=== PATIENT | male | born 1955 | race African-American/Black ===

== ENCOUNTER 2019-08-28 10:40 | Inpatient (IN) | payer OTHER ==
[2019-08-28 12:24] VITALS: BMI 18.6
--- NOTE | 2019-08-28 13:41 | HP ---
CIWA Score Nausea/Vomitin-Mild Nausea/No Vomiting Muscle Tremors: 1-None Visible, but [place] Anxiety: 1-Mildly Anxious Agitation: 1-Slight > Activity Paroxysmal Sweats: 1-Minimal Palms Moist Orientation: 2-Disoriented Date<2 days Tacttile Disturbances: 0-None Auditory Disturbances: 0-None Visual Disturbances: 0-None Headache: 0-None Present CIWA-Ar Total Score: 7 - Admission Criteria OASAS Guidelines: Admission for Medically Managed Detox: Requires at least one of the followin. CIWA greater than 12 2. Seizures within the past 24 hours 3. Delirium tremens within the past 24 hours 4. Hallucinations within the past 24 hours 5. Acute intervention needed for co occurring medical disorder 6. Acute intervention needed for co occurring psychiatric disorder 7. Severe withdrawal that cannot be handled at a lower level of care (continued vomiting, continued diarrhea, abnormal vital signs) requiring intravenous medication and/or fluids 8. Admission ROS [facility] Chief Complaint: "detox" Allergies/Adverse Reactions: Allergies Allergy/AdvReac Type Severity Reaction Status Date / Time No Known Allergies Allergy Verified 08/28/19 12:19 History of Present Illness: 64 year old male presenting for alcohol, cocaine detox, was here yesterday but no beds were available. Alcohol: drinks 2 pints by himself and up to a 1/5 of hard alcohol if with friends. Last drink was 4-5 hours prior to this interview. Has been drinking this way for 2 years. Has been drinking since he was 9. Denies seizures. States has blackouts 2 weeks prior. Denies falls and head hits. Longest period of sobriety: 3 years. 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 Denies eating when he drinks. Has lost weight, 12 lbs, because of drinking. When he doesn't drink, he starts to have tremors. Cocaine: smokes crack. 40-60$ worth once to twice a day. Used to use more in the 90s. Marijuana: 5$ worth per day. Has been smoking for 40 years Has been in detox 6 months ago most recently at [facility]. Has been to rehab in the past. Wants to go to rehab after detox. States will talk to counselor after to go to an inpatient rehab facility. Medical History: hx of repeated ankle sprains. Psychiatric History: bipolar, hospitalized recently 2 years ago. Meds: neurontin, seroquel Surgical History: broken wrist repair Social: lives in residence for mental health. SSI. Smokin/2 ppd 30 years PCP: denies Allergies: denies - Ebola screening Have you traveled outside of the country in the last 21 days: No Have you had contact with anyone from an Ebola affected area: No Do you have a fever: No Patient History - Patient Medical History Hx Anemia: No Hx Asthma: No Hx Chronic Obstructive Pulmonary Disease (COPD): No Hx Cancer: No Hx Cardiac Disorders: No Hx Congestive Heart Failure: No Hx Hypertension: No Hx Hypercholesterolemia: No Hx Pacemaker: No HX Cerebrovascular Accident: No Hx Seizures: No Hx Dementia: No Hx Diabetes: No Hx Gastrointestinal Disorders: No Hx Liver Disease: No Hx Genitourinary Disorders: No Hx Sexually Transmitted Disorders: No Hx Renal Disease (ESRD): No Hx Thyroid Disease: No Hx Human Immunodeficiency Virus (HIV): No Hx Hepatitis C: No Hx Depression: No Hx Suicide Attempt: No Hx Bipolar Disorder: Yes Hx Schizophrenia: No - Patient Surgical History Hx Neurologic Surgery: No Hx Cataract Extraction: No Hx Cardiac Surgery: No Hx Lung Surgery: No Hx Breast Surgery: No Hx Breast Biopsy: No Hx Abdominal Surgery: No Hx Appendectomy: No Hx Cholecystectomy: No Hx Genitourinary Surgery: No Hx Orthopedic Surgery: Yes (R wrist fx repair) - Smoking Cessation Smoking history: Current every day smoker Have you smoked in the past 12 months: Yes Aproximately how many cigarettes per day: 10 Hx Chewing Tobacco Use: No Initiated information on smoking cessation: Yes 'Breaking Loose' booklet given: 08/28/19 - Substances abused Alcohol Substance route: Oral Frequency: Daily Amount used: 2 pints of vodka Age of first use: 10 Date of last use: 08/27/19 Cocaine Substance route: Smoking Frequency: 1-3 times last 30 days Amount used: $40-60 Age of first use: 31 Date of last use: 08/17/19 Marijuana/Hashish Substance route: Smoking Frequency: Daily Amount used: 1 nickel bag Age of first use: 24 Date of last use: 08/27/19 Admission Physical Exam BHS - Vital Signs Vital Signs: Vital Signs - 24 hr 08/28/19 08/28/19 12:19 13:07 Temperature 98.0 F 98.0 F Pulse Rate 103 H 103 H Respiratory 20 20 Rate Blood Pressure 157/92 157/92 - Physical General Appearance: Yes: No Apparent Distress, Nourished, Appropriately Dressed HEENTM: Yes: Hearing grossly Normal, Normal ENT Inspection, Pharynx Normal Respiratory: Yes: Lungs Clear, Normal Breath Sounds Cardiology: Yes: Regular Rhythm, Regular Rate Abdominal: Yes: Normal Bowel Sounds, Non Tender, Flat, Soft Extremities: Yes: Normal Capillary Refill 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
[2019-08-28] MEDS ORDERED: hydrOXYzine PAMOATE 25 MG CAPSULE (FP) PO PRN (13:50)
[2019-08-28] MEDS ORDERED: chlordiazePOXIDE HCL 25 MG CAPSULE PO PRN (13:50)
[2019-08-28] MEDS ORDERED: ACETAMINOPHEN 325 MG TABLET (FP) PO PRN ×2 (13:50)
[2019-08-28] MEDS ORDERED: MAGNESIUM HYDROX 2400MG/30ML ORAL SUSPENSION 30 ML CUP PO PRN (13:50)
[2019-08-28] MEDS ORDERED: MAG HYDROX/AL HYDROX/SIMETH 30 ML UNIT-DOSE CUP PO PRN (13:50)
[2019-08-28] MEDS ORDERED: MENTHOL/PHENOL 1 EACH UD MM PRN (13:50)
[2019-08-28] MEDS ORDERED: IBUPROFEN 400 MG TABLET (FP) PO PRN (13:50)
[2019-08-28] MEDS ORDERED: METHOCARBAMOL 500 MG TABLET PO PRN (13:50)
[2019-08-28] MEDS ORDERED: BISMUTH SUBSALICYLATE 262 MG/15 ML BTL PO PRN (13:50)
[2019-08-28] MEDS ORDERED: MAGNESIUM CITRATE 300 ML BOTTLE PO PRN (13:50)
--- NOTE | 2019-08-28 15:50 | PN ---
Teaching Attending Note Name of Resident: Binu Mcdowell ATTENDING PHYSICIAN STATEMENT I saw and evaluated the patient. I reviewed the resident's note and discussed the case with the resident. I agree with the resident's findings and plan as documented. SUBJECTIVE: 64 year old male presenting for alcohol and cocaine detox, referred by residence where he lives . Alcohol: 2 pints liquor /day x 2 years , reports tremors if not drinking , denies seizures or blackouts , starts drinking in the mornings, reports debt to [employer] 2/2 monies borrowed for etoh use , latest use today .first age of use 9 . detox 6 mo ago [facility] Cocaine: crack 40-60$ x/day . Marijuana: 5$ / day x40 years tobaco : 1/2 ppd PMHX : janina ankle sprains , using cane for stability and balance , remote wrist frx. Psychiatric History: bipolar, hospitalized most recently 2 years ago. OBJECTIVE: wnwd Vital Signs - 24 hr 08/28/19 08/28/19 12:19 13:07 Temperature 98.0 F 98.0 F Pulse Rate 103 H 103 H Respiratory 20 20 Rate Blood Pressure 157/92 157/92 ASSESSMENT AND PLAN: Alcohol dependence - Librium taper
[2019-08-28 17:02] LABS: HEMATOCRIT 44.1 % (35.4-49); HEMOGLOBIN 14.4 GM/dL (11.7-16.9); MCH 30.3 pg (25.7-33.7); MCHC 32.6 g/dl (32.0-35.9); MEAN PLT VOLUME 6.7 fl (7.5-11.1); PLATELET COUNT 327 K/MM3 (134-434); RBC 4.74 M/mm3 (4.00-5.60); WHITE BLOOD COUNT 4.3 K/mm3 (4.0-10.0)
[2019-08-28] MEDS: chlordiazePOXIDE HCL 25 MG CAPSULE PO SCH ×2 (17:10→22:18)
[2019-08-28 17:13] LABS: ALBUMIN 3.7 g/dl (3.4-5.0); BILIRUBIN,TOTAL 0.4 mg/dL (0.2-1); BLOOD UREA NITROGEN 9.1 mg/dL (7-18); CALCIUM 9.2 mg/dL (8.5-10.1); CREATININE 1.2 mg/dL (0.55-1.3); POTASSIUM 3.9 mmol/L (3.5-5.1); TOT PROT 6.9 g/dl (6.4-8.2)
[2019-08-28] MEDS: THIAMINE HCL 100 MG TABLET (FP) PO SCH (22:18)
[2019-08-28] MEDS: MELATONIN 5 MG TABLETS PO PRN (22:18)
[2019-08-29] MEDS: chlordiazePOXIDE HCL 25 MG CAPSULE PO SCH ×4 (06:41→22:07)
[2019-08-29] MEDS: PRENATAL VITAMINS W/ FOLIC ACID TABLET (FP) PO SCH (10:47)
--- NOTE | 2019-08-29 10:58 | PN ---
S CIWA - CIWA Score Nausea/Vomitin-No Nausea/No Vomiting Muscle Tremors: 2 Anxiety: 2 Agitation: 0-Normal Activity Paroxysmal Sweats: 2 Orientation: 0-Oriented Tacttile Disturbances: 0-None Auditory Disturbances: 0-None Visual Disturbances: 0-None Headache: 2-Mild CIWA-Ar Total Score: 8 BHS Progress Note (SOAP) Subjective: c/o sweats, headache, and muscle aches. Objective: 08/29/19 10:55 Vital Signs 08/29/19 08/29/19 08/29/19 03:30 07:04 09:42 Temperature 97.9 F 96.4 F L Pulse Rate 55 L 81 Respiratory 18 18 18 Rate Blood Pressure 113/70 100/65 Lab Results WBC 4.3 K/mm3 (4.0-10.0) 08/28/19 14:00 RBC 4.74 M/mm3 (4.00-5.60) 08/28/19 14:00 Hgb 14.4 GM/dL (11.7-16.9) 08/28/19 14:00 Hct 44.1 % (35.4-49) 08/28/19 14:00 MCV 93.0 fl (80-96) 08/28/19 14:00 MCHC 32.6 g/dl (32.0-35.9) 08/28/19 14:00 RDW 15.0 % (11.9-15.9) 08/28/19 14:00 Plt Count 327 K/MM3 (134-434) 08/28/19 14:00 Sodium 144 mmol/L (136-145) 08/28/19 14:00 Potassium 3.9 mmol/L (3.5-5.1) 08/28/19 14:00 Chloride 110 mmol/L (98-107) H 08/28/19 14:00 Carbon Dioxide 27 mmol/L (21-32) 08/28/19 14:00 Anion Gap 7 MMOL/L (8-16) L 08/28/19 14:00 BUN 9.1 mg/dL (7-18) 08/28/19 14:00 Creatinine 1.2 mg/dL (0.55-1.3) 08/28/19 14:00 Random Glucose 71 mg/dL (74-106) L 08/28/19 14:00 Calcium 9.2 mg/dL (8.5-10.1) 08/28/19 14:00 Labs noted. Assessment: 08/29/19 10:56 AOX3, in no acute respiratory distress. Full ROM, ambulating in the unit with a cane. Withdrawal symptoms. Plan: continue detox.
--- NOTE | 2019-08-29 16:41 | CONSULT ---
[facility] Psychiatric Consult - Data Date of interview: 08/29/19 Admission source: [facility] Identifying data: Readmission to [facility] for this 64 y/o AA male self- referred for detoxification. Subsrtances of abuse : alcohol, cocaine, cannabis, nicotine. Seen on . Patient is single, no dependents, domiciled (resides at [facility] in the [place]), unemployed and supported on SSI benefits. Substance Abuse History: Discussed in this session. See details in current [facility] report as follows : Smoking history: Current every day smoker. Have you smoked in the past 12 months: Yes. Aproximately how many cigarettes per day: 10. Hx Chewing Tobacco Use: No. Initiated information on smoking cessation: Yes. ' Breaking Loose' booklet given: 08/28/19. - Substances abused. Alcohol. Substance route: Oral. Frequency: Daily. Amount used: 2 pints of vodka. Age of first use: 10. Date of last use: 08/27/19. Cocaine. Substance route: Smoking. Frequency: 1-3 times last 30 days. Amount used: $40-60. Age of first use: 31. Date of last use: 08/17/19. Marijuana/Hashish. Substance route: Smoking. Frequency: Daily. Amount used: 1 nickel bag. Age of first use : 24. Date of last use: 08/27/19 Medical History: Remarkable for complaint of weight loss (alcoholism) and pain in left ankle. Ambulates with a cane. Psychiatric History: Unclear history of psychiatric hospitalizations (it appears that the two psychiatric hospitalizations - [facility] + [facility] - were, in fact, CPEP visits (extended observation and release after a few hours). Mr Grier states that he has been diagnosed with bipolar disorder and managed with seroquel 400 mg/hs + gabapentin 200 mg/tid. He sees a psychiatrist at [facility]. Patient denies history of suicide attempts. Physical/Sexual Abuse/Trauma History: Patient denies history of abuse. Additional Comment: Urine drug screen results: THC-Marijuana. Noted. Mental Status Exam - Mental Status Exam Alert and Oriented to: Time, Place, Person Cognitive Function: Good Patient Appearance: Well Groomed (thin habitus) Mood: Nervous, Withdrawn, Hopeful Affect: Appropriate, Normal Range Patient Behavior: Fatigued, Appropriate, Cooperative Speech Pattern: Clear Voice Loudness: Normal Thought Process: Intact, Goal Oriented Thought Disorder: Not Present Hallucinations: Denies Suicidal Ideation: Denies Homicidal Ideation: Denies Insight/Judgement: Poor Sleep: Poorly, Difficulty falling asleep Appetite: Poor, Weight loss Muscle strength/Tone: Normal Gait/Station: Other (walks with a cane) Psychiatric Findings - Problem List ([place] 1, 2,3) (1) Alcohol dependence Current Visit: Yes Status: Chronic (2) Cocaine abuse Current Visit: Yes Status: Chronic (3) Cannabis abuse Current Visit: Yes Status: Chronic (4) Nicotine dependence Current Visit: Yes Status: Chronic (5) Substance induced mood disorder Current Visit: Yes Status: Acute (6) History of bipolar disorder Current Visit: Yes Status: Chronic (7) Insomnia Current Visit: Yes Status: Chronic - Initial Treatment Plan Initial Treatment Plan: Psychoeducation. Sleep hygiene. Detoxification. AA meetings. Seroquel 200 mg po hs (reduced as precaution for oversedation/risk of falls). Side effects/benefits discussed with patient. Mr Grier has expressed his agreement with this plan of care. Attempt made to verify medications with pharmacist at [facility] ([phone]). Closed on Saturdays @ 3:30 pm. Observation.
[2019-08-29] MEDS: THIAMINE HCL 100 MG TABLET (FP) PO SCH (21:41)
[2019-08-29] MEDS: QUEtiapine FUMARATE 200 MG TABLET PO SCH (21:41)
[2019-08-29] MEDS: MELATONIN 5 MG TABLETS PO PRN (21:41)
[2019-08-29] MEDS: GABAPENTIN 100 MG CAPSULE (FP) PO SCH (21:41)
[2019-08-29] MEDS ORDERED: QUEtiapine FUMARATE 400 MG TABLET PO SCH (22:00)
[2019-08-30] MEDS: chlordiazePOXIDE HCL 25 MG CAPSULE PO SCH ×4 (06:02→23:57)
[2019-08-30] MEDS: PRENATAL VITAMINS W/ FOLIC ACID TABLET (FP) PO SCH (10:45)
[2019-08-30] MEDS: GABAPENTIN 100 MG CAPSULE (FP) PO SCH ×2 (10:45→22:22)
--- NOTE | 2019-08-30 17:04 | PN ---
S CIWA - CIWA Score Nausea/Vomitin-No Nausea/No Vomiting Muscle Tremors: 2 Anxiety: 3 Agitation: 2 Paroxysmal Sweats: 3 Orientation: 0-Oriented Tacttile Disturbances: 0-None Auditory Disturbances: 0-None Visual Disturbances: 0-None Headache: 0-None Present CIWA-Ar Total Score: 10 S Progress Note (SOAP) Subjective: Symptoms controlled with medication Objective: 08/30/19 17:03 Last Vital Signs Temp Pulse Resp BP Pulse Ox 98.1 F 101 H 16 113/78 08/30/19 14:21 08/30/19 14:21 08/30/19 14:21 08/30/19 14:21 Laboratory Tests 08/28/19 08/28/19 08/28/19 14:00 14:00 14:00 WBC 4.3 RBC 4.74 Hgb 14.4 Hct 44.1 MCV 93.0 MCH 30.3 MCHC 32.6 RDW 15.0 Plt Count 327 MPV 6.7 L Sodium 144 Potassium 3.9 Chloride 110 H Carbon Dioxide 27 Anion Gap 7 L BUN 9.1 Creatinine 1.2 Est GFR (CKD-EPI)AfAm 74.14 Est GFR (CKD-EPI)NonAf 63.97 Random Glucose 71 L Calcium 9.2 Total Bilirubin 0.4 AST 21 ALT 23 Alkaline Phosphatase 69 Total Protein 6.9 Albumin 3.7 RPR Titer Nonreactive Labs reviewed Assessment: 08/30/19 17:03 Withdrawal sxs Plan: Continue detox Encouraged PO water intake
[2019-08-30] MEDS: QUEtiapine FUMARATE 200 MG TABLET PO SCH (22:22)
[2019-08-30] MEDS: MELATONIN 5 MG TABLETS PO PRN (22:22)
[2019-08-30] MEDS: THIAMINE HCL 100 MG TABLET (FP) PO SCH (22:22)
[2019-08-31] MEDS ORDERED: chlordiazePOXIDE HCL 10 MG CAPSULE PO PRN
[2019-08-31] MEDS: chlordiazePOXIDE HCL 10 MG CAPSULE PO SCH ×4 (06:13→22:05)
--- NOTE | 2019-08-31 06:44 | PN ---
[facility] Progress Note Note: I was informed by the nurse Km Morfin that patient was found on the floor while she was rounding. Patient reports that he fell from the bed this morning but could not recollect time or event. No visual injury injury noted or reported at this time. Patient denies loss of consciousness, pain or discomfort at this time. No swelling, redness, abrasion, swelling or wound noted or reported. Fall was not witnessed. Fall protocol #1 initiated. Patient was endorsed to Dr. Mildred Fitzpatrick. He refused to go to emergency room as per protocol. He signed the refusal of treatment form. Vital Signs Temperature 96 F L 08/31/19 04:00 Pulse Rate 76 08/31/19 04:00 Respiratory Rate 18 08/31/19 04:00 Blood Pressure 119/79 08/31/19 04:00 O2 Sat by Pulse Oximetry (%) PHYSICAL ASSESMENT: General: Patient is alert, calm and well developed. Head: No signs of trauma, normocephalic, atraumatic Eyes: PERRLA, EOMI, sclera is white, conjunctiva clear ENT: Normal hearing. Auricles normal inspection, nares patent, Oropharynx clear without exudates. Moist mucosa LUNGS: No distress, speaks in full sentences, clear to auscultation bilaterally Neck: Supple, no lymphadenopathy, JVD, or masses Lungs: No distress, clear to auscultation bilaterally Heart: Regular rate and rhythm, normal S1 and S2, no murmurs, rubs or gallops, peripheral pulses normal and equal bilaterally. Abdomen: Soft, non-tender, bowel sounds normal. No guarding, no rebound. No palpable masses Extremities: Normal inspection, Normal range of motion, no edema. No clubbing or cyanosis. Neurological: Alert and oriented to person, place and time. ambulates with a cane. No focal deficits Skins: Warm, Dry, normal turgor, no rashes Psych. Fluent speech and clear words. Thought processes are coherent, insight is good Action: Continue post fall monitoring Tylenol 325mg tablet 2 tablet oral Q6H as needed Maintain safety precaution
--- NOTE | 2019-08-31 10:24 | PN ---
S CIWA - CIWA Score Nausea/Vomitin-Mild Nausea/No Vomiting Muscle Tremors: 1-None Visible, but [place] Anxiety: 2 Agitation: 3 Paroxysmal Sweats: No Perspiration Orientation: 0-Oriented Tacttile Disturbances: 0-None Auditory Disturbances: 0-None Visual Disturbances: 0-None Headache: 0-None Present CIWA-Ar Total Score: 7 BHS Progress Note (SOAP) Subjective: alert,irritable,interrupted sleep,anxious,agitation,has unwitness fall ,please see note of SOFT SUGAR CUTTER Berenice Spaulding Objective: 08/31/19 10:25 Vital Signs Temperature 96.8 F L 08/31/19 09:45 Pulse Rate 85 08/31/19 09:45 Respiratory Rate 76 H 08/31/19 09:45 Blood Pressure 123/91 08/31/19 09:45 O2 Sat by Pulse Oximetry (%) Assessment: 08/31/19 10:25 withdrawal symptom Plan: continue detox librium regimen,continue fall protocol 1 observation,observe ambulation on the unit in steady gait, without difficulty
[2019-08-31] MEDS: PRENATAL VITAMINS W/ FOLIC ACID TABLET (FP) PO SCH (10:55)
[2019-08-31] MEDS: GABAPENTIN 100 MG CAPSULE (FP) PO SCH ×2 (10:55→22:05)
[2019-08-31] MEDS: QUEtiapine FUMARATE 200 MG TABLET PO SCH (22:05)
[2019-08-31] MEDS: MELATONIN 5 MG TABLETS PO PRN (22:05)
[2019-08-31] MEDS: THIAMINE HCL 100 MG TABLET (FP) PO SCH (22:05)
--- NOTE | 2019-09-01 04:50 | PN ---
[facility] Progress Note Note: INFORMED CLIENT LEFT UNIT. CLIENT WAS SEEN SEATED IN [facility] WITH NURSING PROTOTYPE CARPENTER, RN AND SECURITY. CLIENT VOICES THAT HE IS UPSET AND WANTS TO LEAVE. "THEY KEEP GIVING ME SOME SHIT THAT IS MAKING ME WEAK AND I KEEP FALLING DOWN". CLIENT EXPRESSES HE DOES NOT WANT TO LEAVE HE HAS HOPES TO CONTINUE TXMENT IN REHAB. DENIES AVH, DIZZINESS, SOB, HEADACHES, SHAKES ,SWEATS AT PRESENT TIME EMOTIONAL SUPPORT AND ENCOURAGEMENT PROVIDED BY TEAM. CLIENT WAS REASSURED THAT [facility] WILL BE DC AND WE WOULD MONITOR FOR ANY ACUTE WITHDRAWAL SX'S AND TREAT ACCORDINGLY. HE WAS ALSO INFORMED THAT HE COULD SPEAK WITH COUNSELOR AROUND 8 AM AND POSSIBLE TRANSFER TO REHAB HE HAS ALREADY COMPLETED 3 DAY TAPER , COMPLETED TAPER TOMORROW AND APPEARS STABLE AT THIS TIME. CLIENT AGREES TO PLAN AND RETURNED TO UNIT ESCORTED BY STAFF. Vital Signs - 8 hr 09/01/19 09/01/19 09/01/19 00:30 03:00 06:00 Temperature 97.9 F 101.8 F H Pulse Rate 101 H 124 H Respiratory 18 22 H 20 Rate Blood Pressure 159/85 135/75 09/01/19 07:00 Temperature 98.4 F Pulse Rate 91 H Respiratory 18 Rate Blood Pressure 128/96 CLIENT IS A/O X3 , CLEAR SPEECH AND THOUGHT PROCESS NCAT PERRLA, EOMI GAIT- CLIENT NOTED WITH WOBBLY/ UNSTEADY GAIT. SWAYING AT TIMES. LEFT HIS CANE UPSTAIRS. A- F11.20 R/F ELOPEMENT R/F FALLS P- 1:1 OBSERVATION FOR SAFETY DC [facility] TAPER F/U WITH COUNSELOR FOR POSSIBLE TRANSFER TO REHAB CLIENT IS CONCERNED ABOUT HIS SSI CHECK. TOLD CLIENT TO SPEAK WITH COUNSELOR TO SEE IF ARRANGEMENTS CAN BE MADE TO SECURE HIS MONIES CONT TO MONITOR CLOSELY FOR ACUTE WITHDRAWAL SX'S CLIENT NOTED WITH SPIKE IN TEMP X 1. REPEAT NL. CLIENT WAS ALSO NOTED WITH A CUP OF COFFEE IN HIS HAND AT THE TIME. DENIES ANY COMPLAINTS AT THIS TIME CONT TO MONITOR CLINICALLY.
[2019-09-01] MEDS ORDERED: chlordiazePOXIDE HCL 10 MG CAPSULE PO SCH (05:00)
[2019-09-01] MEDS: PRENATAL VITAMINS W/ FOLIC ACID TABLET (FP) PO SCH (09:17)
[2019-09-01] MEDS: GABAPENTIN 100 MG CAPSULE (FP) PO SCH (09:22)
[2019-09-01 09:36] VITALS: BP 127/75; PULSE 119; TEMP 97.9
--- NOTE | 2019-09-01 10:02 | PN ---
[facility] Progress Note Note: pt was placed on a 1:1 by THERAPEUTIC PROGRAM WORKER yesterday to avoid pt from eloping during the night. pt was re-assessed this am. Pt expressed his need to leave this morning. He states he finished his detox and want to go home. Pt responded to all questions asked AAOx3 however was very agitated and angry when he answered the questions. Assistant Community Manager asked psych to assist in questioning pt and pt reaction was the same "I just want to go home. I have things to do. " pt was asked if he was looking to hurt self or others and he aggressively states absolutely not! pt was d/c and pt declined rehab however, referral was provided.
--- NOTE | 2019-09-01 10:04 | DS ---
[facility] Detox Discharge Summary Admission Date: 08/28/19 Discharge Date: 09/01/19 - History Present History: Alcohol Dependence, Cannabis Dependence, Cocaine Dependence - Physical Exam Results Vital Signs: Vital Signs Temperature 97.9 F 09/01/19 09:35 Pulse Rate 119 H 09/01/19 09:35 Respiratory Rate 18 09/01/19 09:35 Blood Pressure 127/75 09/01/19 09:35 O2 Sat by Pulse Oximetry (%) Pertinent Admission Physical Exam Findings: pt arrived in withdrawals Laboratory Tests 08/28/19 08/28/19 08/28/19 14:00 14:00 14:00 WBC 4.3 RBC 4.74 Hgb 14.4 Hct 44.1 MCV 93.0 MCH 30.3 MCHC 32.6 RDW 15.0 Plt Count 327 MPV 6.7 L Sodium 144 Potassium 3.9 Chloride 110 H Carbon Dioxide 27 Anion Gap 7 L BUN 9.1 Creatinine 1.2 Est GFR (CKD-EPI)AfAm 74.14 Est GFR (CKD-EPI)NonAf 63.97 Random Glucose 71 L Calcium 9.2 Total Bilirubin 0.4 AST 21 ALT 23 Alkaline Phosphatase 69 Total Protein 6.9 Albumin 3.7 RPR Titer Nonreactive today pt is aaox3 ambulating insisting that he wants to go home - Treatment Hospital Course: Detox Protocol Followed, Detoxed Safely, Responded well, Discharged Condition Good, Rehab Referral Accepted Patient has Accepted a Rehab Referral to: declined rehab; referral provided - Medication Discharge Medications: Ambulatory Orders Gabapentin [Neurontin] 200 mg PO BID 08/27/19 Quetiapine Fumarate [Seroquel -] 400 mg PO HS 08/27/19 - Diagnosis (1) Substance induced mood disorder Current Visit: Yes Status: Acute (2) Alcohol dependence Current Visit: Yes Status: Chronic (3) Cannabis abuse Current Visit: Yes Status: Chronic (4) Cocaine abuse Current Visit: Yes Status: Chronic (5) History of bipolar disorder Current Visit: Yes Status: Chronic (6) Insomnia Current Visit: Yes Status: Chronic (7) Nicotine dependence Current Visit: Yes Status: Chronic Qualifiers: Nicotine product type: cigarettes Substance use status: uncomplicated Qualified Code(s): F17.210 - Nicotine dependence, cigarettes, uncomplicated (8) Substance induced mood disorder Current Visit: Yes Status: Chronic - AMA Did Patient Leave Against Medical Advice: No
[2019-09-02] MEDS ORDERED: chlordiazePOXIDE HCL 10 MG CAPSULE PO ONE (05:00)
== END 2019-09-01 09:44 | disposition home or self-care (01) | DRG 774 ==
LOC: YASAS 10:40 → Y6N 14:57
PROVIDERS: ADMIT Surgery; ATTEND Surgery
PROC: HZ2ZZZZ Detoxification Services for Substance Abuse Treatment (ICD-10-PCS; principal; 2019-08-28)
DX: F10.230 Alcohol dependence with withdrawal, uncomplicated (principal); F14.20 Cocaine dependence, uncomplicated; F12.20 Cannabis dependence, uncomplicated; F17.210 Nicotine dependence, cigarettes, uncomplicated; F19.24 Other psychoactive substance dependence with psychoactive substance-induced mood disorder; G47.00 Insomnia, unspecified; R26.2 Difficulty in walking, not elsewhere classified; Z99.89 Dependence on other enabling machines and devices; W06.XXXA Fall from bed, initial encounter; Y93.89 Activity, other specified; Y92.230 Patient room in hospital as the place of occurrence of the external cause
CPT/HCPCS: 36415; 80053; 85027; 86593